=== PATIENT | male | born 1995 | race African-American/Black ===

== ENCOUNTER 2017-01-16 01:25 | Emergency (ER) | payer OTHER ==
[~2017-01-16] VITALS: Ht 172.7 cm; Wt 80.0 kg
[2017-01-16] MEDS ORDERED: METAL LOCK LOOP XX ONE (05:53)
[2017-01-16 10:10] VITALS: BP 125/86
== END 2017-01-16 10:13 | disposition home or self-care (01) ==
LOC: M ED 01:25 → EDBD 01:25 → M ED 10:13
DX: F10.129 Alcohol abuse with intoxication, unspecified (principal)